=== PATIENT | female | born 1985 | race Two or more races ===

== ENCOUNTER 2022-07-14 04:47 | Inpatient (IN) | payer OTHER ==
[~2022-07-14] VITALS: Ht 167.6 cm; Wt 85.3 kg
[2022-07-14] MEDS ORDERED: PRENATAL CAPLE1 EAC1 PO (05:30)
[2022-07-14] MEDS ORDERED: SYNTHROID137 MCG PO (05:31)
== END 2022-07-16 14:30 | disposition home or self-care (01) | DRG 807 ==
LOC: LDR 04:47 → OB/GYN 14:32
PROVIDERS: ADMIT Obstetrics & Gynecology; ATTEND Obstetrics & Gynecology
PROC: 10E0XZZ Delivery of Products of Conception, External Approach (ICD-10-PCS; principal; 2022-07-14)
PROC: 4A1HXCZ Monitoring of Products of Conception, Cardiac Rate, External Approach (ICD-10-PCS; 2022-07-14)
DX: O80 Encounter for full-term uncomplicated delivery (principal); Z37.0 Single live birth; Z3A.38 38 weeks gestation of pregnancy; Z20.822 Contact with and (suspected) exposure to COVID-19

== ENCOUNTER 2022-08-30 05:46 | Day surgery (SDC) | payer OTHER ==
[~2022-08-30 05:46] MED LIST: PRENATAL CAPLE1 EAC1 PO; SYNTHROID137 MCG PO
== END 2022-08-30 17:10 | disposition home or self-care (01) ==
LOC: CIR.AMB 05:46
PROVIDERS: ATTEND Obstetrics & Gynecology
DX: R10.2 Pelvic and perineal pain (principal); Z30.2 Encounter for sterilization; N73.6 Female pelvic peritoneal adhesions (postinfective); N70.91 Salpingitis, unspecified; Z20.822 Contact with and (suspected) exposure to COVID-19; E03.9 Hypothyroidism, unspecified

== ENCOUNTER 2024-07-16 08:17 | Outpatient (CLI) | payer OTHER | END 2024-07-16 08:23 | disposition home or self-care (01) | LOC: SONOGRAMA 08:17 | PROVIDERS: ATTEND Internal Medicine | DX: E04.2 Nontoxic multinodular goiter (principal) ==